=== PATIENT | female | born 1995 | race Caucasian/White ===

== ENCOUNTER 2018-09-28 23:07 | Emergency (ER) | payer OTHER ==
[~2018-09-28] VITALS: Ht 162.6 cm; Wt 72.6 kg
[2018-09-28 23:11] VITALS: BP 116/77
[2018-09-29] MEDS ORDERED: FLEXERIL PO (00:04)
[2018-09-29] MEDS ORDERED: IBUPROFEN 400400 M2 PO (00:04)
== END 2018-09-29 00:15 | disposition home or self-care (01) ==
LOC: ER 23:07
DX: S80.02XA Contusion of left knee, initial encounter (principal); V89.2XXA Person injured in unspecified motor-vehicle accident, traffic, initial encounter; Y92.89 Other specified places as the place of occurrence of the external cause; Y93.89 Activity, other specified; Y99.8 Other external cause status